=== PATIENT | male | born 1990 | race American Indian/Alaskan Native ===

== ENCOUNTER 2017-10-04 00:48 | Emergency (ER) | payer SELFPAY ==
[2017-10-04 01:03] VITALS: BMI 31.5
--- NOTE | 2017-10-04 01:28 | ED PDOC ---
Arrival/HPI - General Chief Complaint: Medical Clearance Time Seen by Provider: 10/04/17 00:54 Historian: Patient - History of Present Illness Narrative History of Present Illness (Text): 10/04/17 01:23 A 27 year old male, with no significant past medical history, presents to the Emergency Department for evaluation of generalized malaise. He notes that he was working out in the heat all day. Patient also complains of some achiness to the right side of his neck area. Patient stated that he vomited twice today. The patient denies fevers, chills, headache, dizziness, sore throat, cough, chest pain, shortness of breath, dyspnea on exertion, abdominal pain, nausea, diarrhea, neck/back pain, urinary/bowel changes or any other complaint. Time/Duration: Prior to Arrival Symptom Onset: Sudden Symptom Course: Unchanged Activities at Onset: Rest, Light Context: Home Past Medical History - Provider Review Nursing Documentation Reviewed: Yes - Infectious Disease Hx of Infectious Diseases: None Family/Social History - Physician Review Nursing Documentation Reviewed: Yes Family/Social History: No Known Family HX Allergies/Home Meds Allergies/Adverse Reactions: Allergies No Known Allergies Allergy (Unverified 10/04/17 01:22) Review of Systems - Physician Review All systems were reviewed & negative as marked: Yes - Review of Systems Constitutional: Other (Generalized malaise. ). absent: Fevers Respiratory: absent: SOB, Cough Cardiovascular: absent: Chest Pain, VIVEROS Gastrointestinal: Vomiting. absent: Abdominal Pain, Stool Changes, Diarrhea, Nausea Genitourinary Male: absent: Urinary Output Changes Musculoskeletal: Neck Pain (Aching neck). absent: Back Pain Neurological: absent: Headache, Dizziness Physical Exam Vital Signs Reviewed: Yes Vital Signs Temp Pulse Resp BP Pulse Ox 10/04/17 04:05 98.4 F 72 18 129/83 100 10/04/17 00:58 99.4 F 134 H 20 162/90 H 99 Temperature: Afebrile Blood Pressure: Hypertensive Pulse: Tachycardic Respiratory Rate: Normal Appearance: Positive for: Well-Appearing, Non-Toxic, Comfortable, Other ( Patient playing with iPhone) Pain Distress: None Mental Status: Positive for: Alert and Oriented X 3 - Systems Exam Head: Present: Atraumatic, Normocephalic Pupils: Present: PERRL Extroacular Muscles: Present: EOMI Conjunctiva: Present: Normal Mouth: Present: Moist Mucous Membranes Neck: Present: Normal Range of Motion. No: Meningeal Signs Respiratory/Chest: Present: Clear to Auscultation, Good Air Exchange. No: Respiratory Distress, Accessory Muscle Use Cardiovascular: Present: Regular Rate and Rhythm, Normal S1, S2. No: Murmurs Abdomen: No: Tenderness, Distention, Peritoneal Signs Back: Present: Normal Inspection Upper Extremity: Present: Normal Inspection. No: Cyanosis, Edema Lower Extremity: Present: Normal Inspection. No: Edema Neurological: Present: GCS=15, CN II-XII Intact, Speech Normal Skin: Present: Warm, Dry, Normal Color. No: Rashes Psychiatric: Present: Alert, Oriented x 3, Normal Insight, Normal Concentration Medical Decision Making ED Course and Treatment: 10/04/17 01:30 Impression: A 27 year old male presents to the Emergency Department with a complaint of generalized malaise. Plan: -- Labs -- Zofran and IV Fluids -- Reassess and disposition Progress Notes: 10/04/17 04:21 On reevaluation the patient feels better and is in no acute distress. I have discussed the results and plan with the patient, who expresses understanding. Patient given the opportunity to ask question, all questions were answered and there is agreement with the plan to discharge the patient home. Patient is stable for discharge. Patient was instructed to follow up with physician/clinic in 1-2 days or return if symptoms persist/worsen or new concerning symptoms arise. - Lab Interpretations Lab Results: 10/04/17 01:35 10/04/17 01:35 Lab Results 10/04/17 01:40: pO2 54, VBG pH 7.33, VBG pCO2 54.0, VBG HCO3 28.5 H, VBG Total CO2 30.2 H, VBG O2 Sat (Calc) 91.3 H, VBG Base Excess 1.5, VBG Potassium 3.5 L, Glucose 135 H, Lactate 1.6, FiO2 21.0, Sodium 138.0, Chloride 103.0, Venous Blood Potassium 3.5 L 10/04/17 01:35: WBC 9.2, RBC 5.37, Hgb 15.8, Hct 45.1, MCV 84.0, MCH 29.4, MCHC 35.0, RDW 13.6, Plt Count 249, MPV 11.5 H 10/04/17 01:35: Sodium 141, Potassium 3.6, Chloride 98, Carbon Dioxide 28, Anion Gap 19, BUN 17, Creatinine 1.2, Est GFR ( Amer) > 60, Est GFR (Non- Af Amer) > 60, Random Glucose 148 H, Calcium 10.0, Total Bilirubin 0.9, AST 44, ALT 50, Alkaline Phosphatase 72, Total Protein 8.8 H, Albumin 5.1 H, Globulin 3.8, Albumin/Globulin Ratio 1.3 - Medication Orders Current Medication Orders: Discontinued Medications Sodium Chloride (Sodium Chloride 0.9%) 1,000 mls @ 999 mls/hr IV .Q1H1M STA Stop: 10/04/17 02:38 Last Admin: 10/04/17 01:43 Dose: 999 mls/hr eMAR Start Stop Document 10/04/17 01:43 OCS (Rec: 10/04/17 01:43 OCS [id number]) Intravenous Solution Start Date 10/04/17 Start Time 01:43 End Date 10/04/17 End time 02:44 Total Infusion Time 61 Ondansetron HCl (Zofran Inj) 4 mg IVP ONCE ONE Stop: 10/04/17 01:39 Last Admin: 10/04/17 01:48 Dose: Not Given Non-Admin Reason: Patient Refused - Scribe Statement The provider has reviewed the documentation as recorded by the Scribe Nemo Long Provider Scribe Attestation: All medical record entries made by the Scribe were at my direction and personally dictated by me. I have reviewed the chart and agree that the record accurately reflects my personal performance of the history, physical exam, medical decision making, and the department course for this patient. I have also personally directed, reviewed, and agree with the discharge instructions and disposition. Disposition/Present on Arrival - Present on Arrival Any Indicators Present on Arrival: No History of DVT/PE: No History of Uncontrolled Diabetes: No Urinary Catheter: No History of Decub. Ulcer: No History Surgical Site Infection Following: None - Disposition Have Diagnosis and Disposition been Completed?: Yes Diagnosis: Mild dehydration, Muscle ache Disposition: HOME/ ROUTINE Disposition Time: 04:10 Patient Plan: Discharge Patient Problems: Current Active Problems Problem Status Onset Mild dehydration Acute Muscle ache Acute Condition: GOOD Discharge Instructions (ExitCare): Dehydration, Adult (DC) Additional Instructions: Avoid excessive exposure to hot weather/drink plenty of liquids/tylenol or advil as directed/follow up with your doctor this week Referrals: FAMILY PROVIDER,NO [Primary Care Provider] - Follow up with primary Forms: N42 (Slovenian)
[2017-10-04] MEDS ORDERED: Sodium Chloride 0.9% 1,000 ML IV STA (01:38)
[2017-10-04 01:55] LABS: VENOUS BLOOD GAS BASE EXCESS 1.5 mmol/L (0.0-2.0); VENOUS BLOOD GAS PO2 54 mm/Hg (30-55); VENOUS BLOOD PH 7.33 (7.32-7.43)
[2017-10-04 01:59] LABS: HEMOGLOBIN 15.8 g/dL (14.0-18.0); MEAN CORPUSCULAR HEMOGLOBIN 29.4 pg (25.0-35.0); MEAN PLATELET VOLUME 11.5 fl (7.0-11.0); RBC 5.37 10^6/uL (3.5-6.1); RED CELL DISTRIBUTION WIDTH 13.6 % (11.5-14.5); WHITE BLOOD COUNT 9.2 10^3/ul (4.5-11.0)
[2017-10-04 02:02] LABS: ALB/GLOB RATIO 1.3 (1.1-1.8); ALBUMIN 5.1 g/dL (3.0-4.8); ALT/SGPT 50 U/L (7-56); AST/SGOT 44 U/L (17-59); BLOOD UREA NITROGEN 17 mg/dL (7-21); GFR AFRICAN-AMERICAN > 60; GFR NON-AFRICAN AMERICAN > 60
[2017-10-04 04:06] VITALS: BP 129/83; PULSE 72; RESP 18; TEMP 98.4; O2SAT 100
== END 2017-10-04 04:40 | disposition home or self-care (01) ==
LOC: ED 00:48
DX: E86.0 Dehydration (principal); M79.1 Myalgia
CPT/HCPCS: 80053; 82803; 85027; 96360; 99282; J7030